=== PATIENT | female | born 1995 | race Caucasian/White ===

== ENCOUNTER 2019-05-10 22:05 | Observation (INO) | payer SELFPAY ==
[~2019-05-10 22:05] MED LIST: ISOVUE-370 76%-LOCM 1 ML ONE; Iopamidol 370 76% 50 ML VIAL FS ONE
[2019-05-10] MEDS ORDERED: Ondansetron PF 4 MG/2 ML Vial ONE (22:52)
[2019-05-10 22:59] LABS: ALT (SGPT) 31 U/L (8-55); AST (SGOT) 23 U/L (5-34); Albumin 4.6 g/dL (3.5-5.0); Alkaline Phosphatase 89 U/L (40-150); Anion Gap 15 mmol/L (10-20); BUN (Urea Nitrogen) 10 mg/dL (7.0-18.7); Bilirubin, Total 0.5 mg/dL (0.2-1.2); Calc. Creatinine Clearance 0 mL/min (70-130); Calcium 9.1 mg/dL (7.8-10.44); Carbon Dioxide 23 mmol/L (22-29); Chloride 105 mmol/L (98-107); Estimated GFR-MDRD 86; Globulin 2.4 g/dL (2.4-3.5); Glucose 97 mg/dL (70-105); Lipase 17 U/L (8-78); Potassium 3.5 mmol/L (3.5-5.1); Sodium 139 mmol/L (136-145)
[2019-05-10] MEDS ORDERED: Morphine 4 MG/ML VIAL ONE (23:10)
[2019-05-10 23:12] LABS: #Basophils 0.1 thou/uL (0.0-0.2); #Eosinphils 0.3 thou/uL (0.0-0.7); #Lymphocytes 1.6 thou/uL (1.20-3.40); #Neutrophils 11.9 thou/uL (1.40-6.50); %Basophils 0.4 % (0.0-1.0); %Eosinophils 1.9 % (0.0-10.0); %Lymphocytes 10.6 % (21.0-51.0); %Monocytes 6.9 % (0.0-10.0); %Neutrophils 80.2 % (42.0-75.0); Mean Corpuscular HGB CONC 34.1 g/dL (32.0-36.0); Mean Corpuscular Hemoglobin 32.6 pg (27.0-31.0); Mean Corpuscular Volume 95.7 fL (78.0-98.0); Mean Platelet Volume 6.6 fL (7.4-10.4); Platelet Count 362 thou/uL (130-400); RBC Distribution Width 11.5 % (11.5-14.5); White Blood Cell (WBC) Count 14.9 thou/uL (4.8-10.8)
[2019-05-10 23:17] LABS: BHCG - Serum Negative (NEGATIVE); Pregs Control Background? CLEAR/WHITE (CLR/WHITE); Pregs Control Bar Appear? YES (CONTROL BAR)
[2019-05-10 23:19] LABS: Bacteria/HPF 4+ HPF (None Seen); Bilirubin Negative (Negative); Blood, Urine Trace (Negative); Clarity Turbid (Clear); Glucose, Urine (Dipstick) Normal (Negative); Leukocyte 500 Leu/uL (Negative); Mucous/LPF 1+ LPF (<2+); Nitrite Negative (Negative); Protein, Urine (Dipstick) Negative (Neg-Trace); Squamous Epithelial 21-50 HPF (0-3); Urobilinogen Normal mg/dL (Less than 2)
[2019-05-11] MEDS ORDERED: Bupivacaine/Epinephrine 0.25% 30 ML VIAL ONE (02:43)
[2019-05-11] MEDS ORDERED: Fentanyl 100 MCG/2 ML VIAL ONE ×2 (02:56→03:08)
[2019-05-11] MEDS ORDERED: Piperacillin/Tazobactam 3.375 GM VIAL ONE (02:56)
[2019-05-11] MEDS ORDERED: Midazolam HCl 2 mg/2 ml Vial ONE (03:08)
[2019-05-11] MEDS ORDERED: Promethazine HCl 25 MG/ML VIAL IM PRN ×2 (04:28→04:32)
[2019-05-11] MEDS ORDERED: Dextrose 5% in Water 1,000 ML IV PRN (04:28)
[2019-05-11] MEDS ORDERED: hydrALAZINE 20 MG/ML VIAL SLOW IVP PRN (04:28)
[2019-05-11] MEDS ORDERED: Dextrose 50% Abboject 50 ML SYRINGE SLOW IVP PRN (04:28)
[2019-05-11] MEDS ORDERED: Ondansetron PF 4 MG/2 ML Vial IVP PRN (04:28)
[2019-05-11] MEDS ORDERED: traMADol HCl 50 MG TAB PO PRN ×2 (04:30)
[2019-05-11] MEDS ORDERED: Lactated Ringer's 1,000 ML IV SCH (04:30)
[2019-05-11] MEDS ORDERED: Promethazine HCl 25 MG/ML VIAL SLOW IVP PRN (04:32)
[2019-05-11] MEDS ORDERED: Ondansetron HCl/PF 4 MG/2 ML Vial IVP PRN (04:32)
--- NOTE | 2019-05-11 04:45 | OP ---
DATE OF PROCEDURE: 05/11/2019 PREOPERATIVE DIAGNOSIS: Acute appendicitis. POSTOPERATIVE DIAGNOSIS: Acute appendicitis. OPERATION PERFORMED: Laparoscopic appendectomy. ANESTHESIA: General endotracheal. ESTIMATED BLOOD LOSS: Less than 5 mL. FLUIDS GIVEN: 1000 mL crystalloids. COUNTS: Sponge and instrument counts were verified as correct x2. COMPLICATIONS: None apparent at operation. INDICATIONS FOR OPERATION: A 23-year-old woman presented with insidious onset periumbilical abdominal pain, which settled to the right lower quadrant. Clinical radiographic examination was consistent with acute appendicitis for which the patient was brought to the operating room for appendectomy. Findings are consistent with suppurative retrocecal, but nonperforated appendicitis. DESCRIPTION OF PROCEDURE: Informed consent was obtained from the patient, was brought to the operating room and placed in supine position. Following general anesthesia, a Judge catheter was inserted and placed to bedside drain. Abdomen was sterilely prepped and draped in usual fashion. Skin below the umbilicus was infiltrated with 0.25% Marcaine with epinephrine. A small curvilinear infraumbilical incision was made using an 11 scalpel. Umbilical stalk grasped with Deshawn and elevated. Veress needle was inserted through the incision and placed in peritoneal cavity through which the abdomen was insufflated with 2.5 L of CO2 gas. Intraabdominal pressure noted at 2 mmHg. Following the abdominal insufflation, Veress needle was removed and a 5 mm trocar introduced using a Visiport under laparoscopy. Laparoscopy confirmed proper placement of the port, no injuries to underlying structures. Additional laparoscopy reveals the right lower quadrant partially obscured by omental adhesions. Under laparoscopy two 5 mm suprapubic and left lower quadrant ports were placed after the overlying skin infiltrated with 0.25% Marcaine with epinephrine. Appropriate incision was made. The patient was placed in a Trendelenburg position, rotated to her left. I introduced a Prestige grasper through the left lower quadrant port site, grasped using this to bluntly take down omental adhesions to expose the retrocecal suppurative appendix. I then introduced a Mala forceps through the suprapubic port site grasping the appendix, which was elevated. Mesoappendix was sterilely divided down to the base using the LigaSure device with good hemostasis. The appendix itself was divided at the appendiceal-cecal junction between endo-loops. The appendix was delivered of the abdominal cavity using EndoCatch. I then ran the distal ileum from the ileocecal junction down to proximal 2 feet finding no Meckel's diverticulum. Finding no other pathology laparoscopy was terminated. The abdomen was desufflated. All ports and instruments removed and accounted for. Skin incisions were closed using 4-0 Monocryl suture in subcuticular fashion. Dermabond was applied over incisional closure. The patient tolerated the operation without any apparent complication and was returned to recovery room in satisfactory condition. Job ID: [id number]
[2019-05-11 05:32] VITALS: BMI 20.6
[2019-05-11] MEDS: Acetaminophen 325 MG TAB PO SCH ×3 (05:51→12:54)
[2019-05-11] MEDS ORDERED: Ibuprofen 600 MG TAB PO SCH (06:00)
--- NOTE | 2019-05-11 08:31 | CT ---
PRELIMINARY REPORT/[facility]/EMERGENCY AFTER HOURS PROCEDURE: Addendum created by Jose Raul Gonzalez MD on 05/11/2019 1:50 AM Central Time ([place] & [place]) Findings discussed with RISHABH CORDOVA at time of interpretation. Initial Report created on 05/11/2019 1:34 AM Central Time ([place] & [place]) EXAM: CT Abdomen and Pelvis With Contrast EXAM DATE/TIME: 05/11/2019 1:16 AM CLINICAL HISTORY: 23 years old, female; Right lower quadrant (rlq); Patient HX: Er 23. PT C/O abdominal pain x2 days, l ocalized to periumbical region with radiation to rlq. PT also C/O nausea, denies vomiting TECHNIQUE: Imaging protocol: Computed tomography of the abdomen and pelvis with intravenous contrast. COMPARISON: No relevant prior studies available. FINDINGS: Liver: Normal. No mass. Gallbladder and bile ducts: Normal. No calcified stones. No ductal dilation. Pancreas: Normal. No ductal dilation. Spleen: Normal. No splenomegaly. Adrenals: Normal. No mass. Kidneys and ureters: Normal. No hydronephrosis. Stomach and bowel: Appendix is fluid-filled and prominent at 8-9 mm in caliber and does not opacify with oral contrast despite distention of the cecum with oral contrast. There is also a tiny appendico lith in the proximal appendiceal lumen and probable trace periappendiceal inflammation. Findings are compatible with acute appendicitis. Appendix: See Stomach And Bowel Finding. Intraperitoneal space: No pneumoperitoneum or abscess. Vasculature: Unremarkable. No abdominal aortic aneurysm. Lymph nodes: Unremarkable. No enlarged lymph nodes. Bladder: Unremarkable as visualized. Reproductive: Unremarkable as visualized. Bones/joints: Unremarkable. No acute fracture. Soft tissues: Unremarkable. IMPRESSION: Acute appendicitis. Thank you for allowing us to participate in the care of your patient. Dictated and Authenticated by: Jose Raul Gonzalez MD 05/11/2019 1:34 AM Central Time ([place] & [place]) FINAL REPORT: CT ABDOMEN AND PELVIS WITH IV CONTRAST: PROVIDED CLINICAL HISTORY: Abdominal pain. COMPARISON: None. FINDINGS/IMPRESSION: Agree with the preliminary interpretation given by ARASH. Transcribed Date/Time: 05/11/2019 8:35 AM
[2019-05-11] MEDS ORDERED: Famotidine/PF 20 mg/2ml Vial SLOW IVP SCH (09:00)
[2019-05-11] MEDS ORDERED: Famotidine 20 MG TAB PO SCH (09:00)
[2019-05-11] MEDS ORDERED: Lidocaine 1% PF 5 ML VIAL ONE (10:27)
[2019-05-11] MEDS ORDERED: PROPOFOL 200 MG/20 ML VIAL ONE (10:27)
[2019-05-11] MEDS ORDERED: Rocuronium Bromide 10 MG/ML (10ML VIAL) ONE (10:27)
[2019-05-11] MEDS ORDERED: Succinylcholine Chloride 20 MG/ML 10 ml SYRINGE FS ONE (10:27)
[2019-05-11] MEDS ORDERED: Glycopyrrolate 0.2 MG/ML 5 ML SYRINGE ONE (10:27)
[2019-05-11] MEDS ORDERED: Ketorolac Tromethamine 30 MG/ML VIAL ONE (10:27)
[2019-05-11 11:17] VITALS: BP 138/83; TEMP 98.7
[2019-05-11 12:13] LABS: Bilirubin Negative (Negative); Blood, Urine Negative (Negative); Clarity Clear (Clear); Glucose, Urine (Dipstick) Normal (Negative); Leukocyte 75 Leu/uL (Negative); Nitrite Negative (Negative); Protein, Urine (Dipstick) Negative (Neg-Trace); RBC/HPF 0-3 HPF (0-3); Urobilinogen Normal mg/dL (Less than 2)
[2019-05-11 12:26] LABS: Bacteria/HPF 1+ HPF (None Seen)
[2019-05-11 12:28] LABS: Urine Culture Reflex No No
--- NOTE | 2019-05-13 07:39 | HP ---
HISTORY OF PRESENT ILLNESS: Ms. Penaloza is a 23-year-old woman who presented to the emergency department. The patient reports insidious onset periumbilical dull abdominal ache which started at approximately 1700 hours and associated with multiple episodes of nausea. Pain has settled now in the right lower quadrant where it has persisted. She now complains of 2 episodes of nonbilious emesis. She has low-grade fever, but denies any chills. She denies any diarrhea. PAST MEDICAL HISTORY: The patient denies any previous medical problems, although she takes sertraline 100 mg p.o. daily. PAST SURGICAL HISTORY: Denies any previous surgeries. ALLERGIES: THE PATIENT DENIES ANY KNOWN DRUG ALLERGIES. FAMILY HISTORY: Notable for breast carcinoma in both grandmothers. She denies any family history of essential hypertension, diabetes mellitus, or heart disease. SOCIAL HISTORY: She is a senior at [employer], major in [employer] She denies any cigarette smoking, ethanol, or illicit drug abuse. REVIEW OF SYSTEMS: 10-point review of systems is essentially unremarkable except as stated in Past Medical History and Chief Complaint. PHYSICAL EXAMINATION: GENERAL: This reveals a 23-year-old normally developed woman, who is otherwise coherent and interactive and appears her stated age. The patient is alert and oriented x3, appears to be in no acute distress at the time of my evaluation. VITAL SIGNS: Include blood pressure 133/92, pulse 104, respiratory rate is 18, temperature is 98.8 degrees Fahrenheit, oxygen saturation is 99% on room air. HEENT: Reveals normocephalic and atraumatic. Pupils equal, round, reactive to light and accommodation. Extraocular muscles are intact bilaterally. No scleral icterus present. Oral mucosa is pink and moist. No lesions are noted. NECK: Supple. No palpable lymphadenopathy or thyromegaly present. HEART: Reveals regular rate with mild sinus tachycardia. No murmurs or gallops auscultated. LUNGS: Clear to auscultation bilaterally. Breathing, regular and unlabored. ABDOMEN: Soft with right lower quadrant tenderness to palpation. She has a positive Rovsing sign. EXTREMITIES: Reveal 2+ radial and pedal pulses bilaterally. No ankle edema is present. NEUROLOGIC: Reveals no focal deficits present. LABORATORY FINDINGS: Today include a CBC with 14,900 white blood cells, hemoglobin and hematocrit 14.0 and 41.2 respectively. Platelet count is 362,000. Metabolic profile; sodium 139, potassium 3.5, chloride is 105, bicarb is 23, BUN is 10, creatinine is 0.84, glucose 97, total bilirubin is 0.5, AST and ALT are 23 and 31 respectively. Serum test is negative. I have personally reviewed the CT scan of the abdomen and pelvis, which is remarkable for dilated appendix with periappendiceal fat stranding. No pneumoperitoneum or significant free fluid is noted. IMPRESSION: Acute appendicitis. RECOMMENDATIONS: Laparoscopic appendectomy. I have informed the patient of the above findings and recommendations. Also, I informed her of the risks and benefits of proposed surgery to include, but not limited to bleeding, infection, injury to bowel or surrounding structures. The patient indicates understanding of this information I have given her today in the presence of her nurse. I answered her questions. The patient is going to consent for this admission and surgical intervention. Job ID: [id number]
--- NOTE | 2019-05-13 12:13 | DIS ---
DATE OF ADMISSION: 05/11/2019 DATE OF DISCHARGE: 05/11/2019 ADMISSION DIAGNOSIS: Acute appendicitis. CONSULTATIONS: None. PROCEDURE: Laparoscopic appendectomy. SUMMARY: The patient is a 23-year-old woman, who presented to the emergency department after having several episodes of nausea that began periumbilical and migrated to her right lower quadrant. She underwent evaluation and examination and was noted to have acute appendicitis, at which time, she was taken to the operating room to undergo her above procedure, which she tolerated well. The following day, after showing that she was tolerating a diet and her pain was controlled, she was able to be discharged home. The patient will follow up with Dr. Pendleton in 2 weeks in his clinic, sooner as needed. Job ID: [id number]
== END 2019-05-11 13:15 | disposition home or self-care (01) ==
LOC: ERS 22:05 → SURG A 05-11 03:21
PROVIDERS: ADMIT Surgery; ATTEND Surgery
PROC: 0DTJ4ZZ Resection of Appendix, Percutaneous Endoscopic Approach (ICD-10-PCS; principal; 2019-05-11)
DX: K35.80 Unspecified acute appendicitis (principal); Z79.899 Other long term (current) drug therapy
CPT/HCPCS: 36415; 74177; 80053; 81001; 81003; 81015; 83690; 84703; 85025; 87086; 88304; 96361; 96374; 96375; 96376; G0378; J1885; J2001; J2250; J2270; J2405; J2543; J2704; J3010; Q9966; Q9967